=== PATIENT | female | born 1950 | race Two or more races ===

== ENCOUNTER 2019-01-01 06:25 | Inpatient (IN) | payer MEDICAID ==
[~2019-01-01] VITALS: Ht 152.4 cm; Wt 100.7 kg
[~2019-01-01 06:25] MED LIST: LACTATED RINGERS 1,000 ML IV SCH
[2019-01-01] MEDS ORDERED: TRANEXAMIC ACID 1,000 MG in SODIUM CHLORIDE 0.9% 100 ML IV NR (07:15)
[2019-01-01] MEDS ORDERED: TRANEXAMIC ACID 1,000 MG/10 ML IV ONE (07:15)
[2019-01-01 08:23] LABS: CLARITY URINE CLEAR (CLEAR); COLOR URINE YELLOW (YELLOW); KETONES URINE NEGATIVE (NEGATIVE); LEUKOCYTE ESTERASE URINE NEGATIVE (NEGATIVE); NITRITE URINE NEGATIVE (NEGATIVE); OCCULT BLOOD URINE 2+ (NEGATIVE); PH URINE 5.5 (4.5-8.0); PROTEIN URINE NEGATIVE (NEGATIVE); SPECIFIC GRAVITY URINE 1.016 (1.005-1.030); UROBILINOGEN URINE 0.2 E.U./dL (0.2-1.0)
[2019-01-01] MEDS ORDERED: BUPIVACAINE/EPINEPH/PF 0.25%/0.0005 10ML ONE (08:44)
[2019-01-01] MEDS ORDERED: METHYLENE BLUE 50 MG/10 ML AMP IV ONE (08:44)
[2019-01-01] MEDS ORDERED: MORPHINE SULFATE/PF 1MG/ML 10ML AMP ONE (08:45)
[2019-01-01] MEDS ORDERED: GENTAMICIN SULF 40MG/ML 2ML VIAL ONE (08:45)
[2019-01-01] MEDS ORDERED: NORMAL SALINE 0.9% 10 ML SYR ONE (08:46)
[2019-01-01] MEDS ORDERED: EPINEPHRINE 1:1000 1 MG/ML AMP ONE (08:46)
[2019-01-01] MEDS ORDERED: VANCOMYCIN HCL 500 MG/VIAL ONE (08:46)
[2019-01-01] MEDS ORDERED: BACITRACIN 50,000 UNITS/VIAL ONE (08:46)
[2019-01-01] MEDS ORDERED: ROPIVACAINE HCL 10MG/ML 20 ML VIAL EPI ONE (09:21)
[2019-01-01] MEDS ORDERED: BUPIVACAINE HCL/DEXTROSE/PF 0.75% 2ML AMP INJ ONE (09:22)
[2019-01-01] MEDS ORDERED: PROPOFOL 200MG/20ML VIAL IV ONE (09:24)
[2019-01-01] MEDS ORDERED: ROCURONIUM BROMIDE 10MG/ML VIAL 5ML IV ONE (09:24)
[2019-01-01] MEDS ORDERED: NEOSTIGMINE METHYLSULFATE 1MG/ML 10 ML VIAL ONE (09:24)
[2019-01-01] MEDS ORDERED: FENTANYL CITRATE/PF 50MCG/ML 2ML VIAL ONE ×2 (09:24→13:13)
[2019-01-01] MEDS ORDERED: MIDAZOLAM HCL 2 MG/2 ML VIAL ONE (09:24)
[2019-01-01] MEDS ORDERED: GLYCOPYRROLATE 0.2 MG/ML 2ML VIAL ONE (09:24)
[2019-01-01] MEDS ORDERED: EPHEDRINE SULFATE 50MG/ML VIAL ONE (09:25)
[2019-01-01] MEDS ORDERED: LIDOCAINE HCL/PF 1% 10 MG/ML 5ML VIAL ONE (09:25)
[2019-01-01] MEDS ORDERED: SUCCINYLCHOLINE CHLORIDE 200MG/10ML IV ONE (09:25)
[2019-01-01] MEDS ORDERED: SODIUM CHLORIDE 0.9% 10ML VIAL ONE (09:25)
[2019-01-01] MEDS ORDERED: CEFAZOLIN SODIUM 1000MG/VIAL ONE (09:25)
[2019-01-01] MEDS ORDERED: METOCLOPRAMIDE HCL 10MG/2ML VIAL ONE (09:25)
[2019-01-01] MEDS ORDERED: PHENYLEPHRINE HCL 10 MG/ML 1ML (IV VIAL) IV ONE (09:25)
[2019-01-01] MEDS ORDERED: DEXAMETHASONE 4MG/ML 1ML VIAL ONE (09:25)
[2019-01-01] MEDS ORDERED: ONDANSETRON HCL 4MG/2ML INJ ONE (09:25)
[2019-01-01] MEDS ORDERED: DICL100G31 TP (09:53)
[2019-01-01] MEDS ORDERED: SIMV20TA6 PO (09:53)
[2019-01-01] MEDS ORDERED: PANT40TA4 PO (09:53)
[2019-01-01] MEDS ORDERED: MELO-106 PO (09:53)
[2019-01-01] MEDS ORDERED: GABA-529 PO (09:53)
[2019-01-01] MEDS ORDERED: LISI10TA5 PO (09:53)
[2019-01-01] MEDS ORDERED: INDA1.255 PO (09:53)
[2019-01-01] MEDS ORDERED: BACL-141 PO (09:53)
[2019-01-01] MEDS ORDERED: ALBUMIN HUMAN 12.5G/250ML (5%) IV ONE (10:16)
[2019-01-01] MEDS ORDERED: GELATIN SPONGE,ABSORBABLE 12-7MM SPONGE ONE (12:30)
[2019-01-01] MEDS ORDERED: SODIUM CHLORIDE 0.9% 1,000 ML IV ONE (12:36)
[2019-01-01] MEDS ORDERED: THROMBIN TOP NR (12:45)
[2019-01-01] MEDS ORDERED: HYDROMORPHONE HCL/PF 2MG/ML CPJ IV PRN (12:45)
[2019-01-01] MEDS ORDERED: MEPERIDINE HCL/PF 25MG/ML CPJ IV PRN ×2 (12:45)
[2019-01-01] MEDS ORDERED: ONDANSETRON HCL 4MG/2ML INJ IV PRN ×2 (12:45→14:00)
[2019-01-01] MEDS ORDERED: MORPHINE SULFATE 4 MG/ML CPJ (NOT FOR IM USE) IV PRN (12:45)
[2019-01-01] MEDS ORDERED: MAGNESIUM HYDROXIDE 400MG/5ML 30ML UDC PO PRN (14:00)
[2019-01-01] MEDS ORDERED: ZOLPIDEM TARTRATE 5MG TABLET PO PRN (14:00)
[2019-01-01] MEDS ORDERED: ACETAMINOPHEN 325MG TABLET PO PRN (14:00)
[2019-01-01] MEDS ORDERED: HYDROCODONE/ACETAMINOPHEN 10/325MG TABLET PO PRN (14:00)
[2019-01-01] MEDS ORDERED: HYDRALAZINE 20MG/ML VIAL IV PRN (15:15)
[2019-01-01 16:00] VITALS: BP 153/84
[2019-01-01] MEDS: DOCUSATE SODIUM 100MG CAPSULE PO SCH (17:00)
[2019-01-01 17:36] VITALS: BP 153/84
[2019-01-01] MEDS ORDERED: LATA2.5D2 EACHEYE (17:49)
[2019-01-01] MEDS: CEFAZOLIN 2,000 MG in DEXT 5% WATER 100 ML IV SCH (19:55)
[2019-01-01 20:00] VITALS: BP 148/90
[2019-01-02] VITALS: BP 131/60
[2019-01-02] MEDS: CEFAZOLIN 2,000 MG in DEXT 5% WATER 100 ML IV SCH (02:47)
[2019-01-02 04:00] VITALS: BP 102/84
[2019-01-02 07:48] LABS: BASOPHILS % 0.2 % (0.0-2.0); HEMATOCRIT. 33.3 % (36.0-48.0); HEMOGLOBIN. 11.1 g/dL (12.0-16.0); LYMPHOCYTES % 11.9 % (20.0-50.0); MEAN CORPUSCULAR HEMOGLOBIN 28.8 pg (28.0-32.0); MEAN CORPUSCULAR VOLUME 86.8 fL (81.0-99.0); MONOCYTES % 9.4 % (2.0-8.0); NEUTROPHILS % 78.5 % (40.0-76.0); PLATELET 256 x1000/uL (130-400); RED BLOOD CELL COUNT 3.83 mill/uL (4.2-5.4); RED CELL DISTRIBUTION WIDTH 12.9 % (11.6-14.6)
[2019-01-02 07:55] LABS: CHLORIDE 109 mEq/L (98-107)
[2019-01-02 08:00] VITALS: BP 137/74
[2019-01-02] MEDS: HYDROCODONE/ACETAMINOPHEN 10/325MG TABLET PO PRN ×3 (09:26→21:30)
[2019-01-02] MEDS: DOCUSATE SODIUM 100MG CAPSULE PO SCH ×2 (09:27→17:00)
[2019-01-02] MEDS: LISINOPRIL 10MG TABLET PO SCH (09:27)
[2019-01-02] MEDS: ENOXAPARIN 30MG/0.3ML SYR SUBCUT SCH ×2 (09:30→20:11)
[2019-01-02 12:00] VITALS: BP 118/61
[2019-01-02 16:00] VITALS: BP 124/76
[2019-01-02 20:00] VITALS: BP 122/59
[2019-01-03] VITALS: BP 119/55
[2019-01-03 04:00] VITALS: BP 138/73
[2019-01-03] MEDS: HYDROCODONE/ACETAMINOPHEN 10/325MG TABLET PO PRN ×2 (05:04→11:18)
[2019-01-03 08:00] VITALS: BP 134/62
[2019-01-03] MEDS: DOCUSATE SODIUM 100MG CAPSULE PO SCH (08:57)
[2019-01-03] MEDS: LISINOPRIL 10MG TABLET PO SCH (08:58)
[2019-01-03] MEDS: ENOXAPARIN 30MG/0.3ML SYR SUBCUT SCH (08:58)
[2019-01-03 12:00] VITALS: BP 136/68
[2019-01-03 14:20] VITALS: BP 133/64
== END 2019-01-03 14:45 | disposition home or self-care (01) | DRG 302 ==
LOC: OR 06:25 → 6EST 06:26
PROVIDERS: ADMIT Orthopaedic Surgery; ATTEND Orthopaedic Surgery
PROC: 0SRC0J9 Replacement of Right Knee Joint with Synthetic Substitute, Cemented, Open Approach (ICD-10-PCS; principal; 2019-01-01)
DX: M17.0 Bilateral primary osteoarthritis of knee (principal); Z68.41 Body mass index [BMI] 40.0-44.9, adult; E66.9 Obesity, unspecified; E78.5 Hyperlipidemia, unspecified; G89.29 Other chronic pain; I10 Essential (primary) hypertension; M21.161 Varus deformity, not elsewhere classified, right knee; M65.9 Synovitis and tenosynovitis, unspecified
CPT/HCPCS: 36415; 73560; 80048; 86850; 86900; 88305; 88311; 97116; 97163; 97166; 97530; 97535; A4565; C1776; J0171; J0330; J0690; J1100; J1580; J1650; J2250; J2274; J2370; J2405; J2704; J2710; J2765; J2795; J3010; J3370; J3490; J7040; J7050; J7060; L1830; P9041; Q9968